=== PATIENT | male | born 1945 | race Caucasian/White ===

== ENCOUNTER 2021-07-11 14:25 | Emergency (ER) | payer MEDICARE, MEDICAID ==
[~2021-07-11] VITALS: Ht 172.7 cm; Wt 76.0 kg
[2021-07-11 14:30] VITALS: BP 140/82
[2021-07-11 15:16] LABS: BASOPHILS % 0.5 % (0.0-2.0); EOSINOPHILS % 3.7 % (0.0-5.0); HEMATOCRIT. 42.6 % (42.0-52.0); HEMOGLOBIN. 14.8 g/dL (14.0-18.0); LYMPHOCYTES % 50.2 % (20.0-50.0); MEAN CORPUSCULAR HEMOGLOBIN 32.3 pg (28.0-32.0); MEAN CORPUSCULAR VOLUME 93.3 fL (80.0-94.0); MEAN PLATELET VOLUME 8.1 fl (7.4-10.4); MONOCYTES % 9.7 % (2.0-8.0); NEUTROPHILS % 35.9 % (40.0-76.0); PLATELET 252 x1000/uL (130-400); RED BLOOD CELL COUNT 4.57 mill/uL (4.7-6.1); RED CELL DISTRIBUTION WIDTH 12.7 % (11.6-14.6)
[2021-07-11 15:22] LABS: CHLORIDE 101 mEq/L (98-107)
== END 2021-07-11 16:16 | disposition left against medical advice (07) ==
LOC: ER 14:25
DX: R93.1 Abnormal findings on diagnostic imaging of heart and coronary circulation (principal); I49.8 Other specified cardiac arrhythmias; I51.7 Cardiomegaly; I10 Essential (primary) hypertension; E78.5 Hyperlipidemia, unspecified; I25.10 Atherosclerotic heart disease of native coronary artery without angina pectoris; Z98.61 Coronary angioplasty status; Z79.899 Other long term (current) drug therapy
CPT/HCPCS: 36415; 71045; 80053; 83880; 84484; 85025; 93005; 99285

== ENCOUNTER → 2021-09-22 | Day surgery (SDC) | payer MEDICARE, MEDICAID ==
[~2021-09-22] VITALS: Ht 172.7 cm; Wt 78.9 kg
[~2021-09-22] MED LIST: ASPI-1497 PO; ATOR20TA65 PO; HYDR25TA PO; LOSA50TA41 PO; RIVA20TA PO; SOTA80TA PO; TRAM50TA3 PO
[2021-09-22 08:02] LABS: BASOPHILS % 0.4 % (0.0-2.0); HEMATOCRIT. 44.3 % (42.0-52.0); LYMPHOCYTES % 34.7 % (20.0-50.0); MEAN CORPUSCULAR HEMOGLOBIN 31.7 pg (28.0-32.0); MEAN CORPUSCULAR VOLUME 93.7 fL (80.0-94.0); NEUTROPHILS % 53.9 % (40.0-76.0); PLATELET 226 x1000/uL (130-400); RED BLOOD CELL COUNT 4.72 mill/uL (4.7-6.1); RED CELL DISTRIBUTION WIDTH 13.2 % (11.6-14.6)
[2021-09-22 08:07] LABS: CHLORIDE 103 mEq/L (98-107)
[2021-09-22 08:16] LABS: INR 1.1; PROTHROMBIN TIME 11.7 sec (9.6-11.0)
== END | disposition home or self-care (01) ==
LOC: CCL 07:07
PROVIDERS: ATTEND Internal Medicine Clinical Cardiac Electrophysiology
DX: I48.19 Other persistent atrial fibrillation (principal); I49.5 Sick sinus syndrome; Z95.0 Presence of cardiac pacemaker; Z79.899 Other long term (current) drug therapy; Z98.890 Other specified postprocedural states; Z20.822 Contact with and (suspected) exposure to COVID-19
CPT/HCPCS: 36415; 80048; 85025; 87426; 92960; 93005